=== PATIENT | female | born 1990 | race Caucasian/White ===

== ENCOUNTER 2024-02-20 13:52 | Inpatient (IN) | payer OTHER ==
[2024-02-20] MEDS: Lactated Ringers 1,000 ML IV ONE (14:28)
[2024-02-20] MEDS: Penicillin G Potassium 5 MILLUNITS in Sodium Chloride 0.9% 100 ML IV ONE (14:29)
[2024-02-20] MEDS ORDERED: Carboprost Tromethamine 250 MCG/1 ML Amp IM PRN (14:39)
[2024-02-20] MEDS ORDERED: Sodium Chloride 0.9% 10 ML Syringe FLUSH PRN (14:39)
[2024-02-20] MEDS ORDERED: Methylergonovine 0.2 MG/1 ML Amp IM PRN (14:39)
[2024-02-20] MEDS ORDERED: fentaNYL 100 MCG/2 ML SDV IVPUSH PRN (14:39)
[2024-02-20] MEDS ORDERED: Ondansetron 4 MG/2 ML SDV IVPUSH PRN (14:39)
[2024-02-20] MEDS ORDERED: Acetaminophen 325 MG Tab PO PRN (14:39)
[2024-02-20] MEDS ORDERED: Misoprostol 400 MCG (4 X 100 MCG TAB) RECTAL PRN (14:39)
[2024-02-20 14:46] LABS: HEMATOCRIT 36.8 % (37.0-47.0); HEMOGLOBIN 12.6 g/dL (12.0-16.0); MEAN CORPUSCULAR HEMOGLOBIN 30.7 pg (27.0-34.0); MEAN CORPUSCULAR HGB CONC 34.2 g/dL (33.0-35.0); MEAN CORPUSCULAR VOLUME 89.5 fL (80-100); RED BLOOD CELL COUNT 4.11 10^6/uL (4.2-5.4); WHITE BLOOD CELL COUNT,WBC 10.7 10^3/uL (5.0-10.0)
[2024-02-20] MEDS: Lactated Ringers 1,000 ML IV SCH (15:00)
[2024-02-20] MEDS ORDERED: ePHEDrine 50 MG/ML SDV IVPUSH PRN (15:11)
[2024-02-20] MEDS ORDERED: Phenylephrine HCl In 0.9% NaCl 1 MG/10 ML Syringe IVPUSH PRN (15:11)
[2024-02-20] MEDS ORDERED: Ropivacaine 200 MG in Premix Bag 1 BAG EPIDUR SCH (15:15)
[2024-02-20] MEDS: Penicillin G Potassium 3 MILLUNITS in Sodium Chloride 0.9% 100 ML IV SCH (17:36)
[2024-02-20] MEDS: Oxytocin/Normal Saline 30 UNIT/500 ML BAG IV SCH (18:01)
[2024-02-20] MEDS ORDERED: Simethicone 80 MG Tab.Chew PO PRN (19:07)
[2024-02-20] MEDS ORDERED: Oxytocin 10 Units/1 ML SDV IM PRN (19:07)
[2024-02-20] MEDS: Tranexamic Acid 1,000 MG in Sodium Chloride 0.9% 100 ML IV PRN (19:51)
[2024-02-20] MEDS: Lidocaine 1% 30 ML SDV INJECT ONE (19:54)
[2024-02-20] MEDS: Ibuprofen 800 MG Tab PO SCH (20:01)
[2024-02-20] MEDS: Docusate Sodium 100 MG Cap PO PRN (20:01)
[2024-02-20] MEDS: Methylergonovine 0.2 MG Tab PO SCH (20:02)
[2024-02-20] MEDS: Benzocaine/Menthol 20%-0.5% Spray 78 GM Cannister TOP PRN (20:03)
[2024-02-21] MEDS: Acetaminophen 325 MG Tab PO PRN (01:28)
[2024-02-21] MEDS: Witch Hazel Medicated Pads 100/Jar TOP PRN (08:36)
[2024-02-21] MEDS: Prenatal Multivitamin with Calcium/Folic Acid/Iron Tab PO SCH (08:37)
[2024-02-21] MEDS: Calcium Carbonate 500 MG Tab.Chew PO PRN (14:50)
[2024-02-22] MEDS ORDERED: Bupivacaine 0.25% 10 ML SDV EPIDUR ONE (12:54)
[2024-02-22] MEDS ORDERED: Ropivacaine 100 ML EPIDUR ONE (12:54)
[2024-02-22] MEDS ORDERED: fentaNYL 100 MCG/2 ML SDV EPIDUR ONE (12:54)
== END 2024-02-22 12:55 | disposition home or self-care (01) | DRG 807 ==
LOC: DL.OBCHECK 13:52 → DL.OB 14:19 → UNDOADMOB 14:19 → DL.OB 17:58 → OBSVTOIN 18:18 → INTOOBSV 18:18 → DL.OB 18:18
PROVIDERS: ADMIT Family Medicine; ATTEND Family Medicine
PROC: 10E0XZZ Delivery of Products of Conception, External Approach (ICD-10-PCS; principal; 2024-02-20)
PROC: 0KQM0ZZ Repair Perineum Muscle, Open Approach (ICD-10-PCS; 2024-02-20)
PROC: 3E0R3BZ Introduction of Anesthetic Agent into Spinal Canal, Percutaneous Approach (ICD-10-PCS; 2024-02-20)
PROC: 00HU33Z Insertion of Infusion Device into Spinal Canal, Percutaneous Approach (ICD-10-PCS; 2024-02-20)
DX: O99.824 Streptococcus B carrier state complicating childbirth (principal); Z37.0 Single live birth; Z3A.38 38 weeks gestation of pregnancy; O99.284 Endocrine, nutritional and metabolic diseases complicating childbirth; E03.9 Hypothyroidism, unspecified; O99.02 Anemia complicating childbirth; O70.1 Second degree perineal laceration during delivery; O42.02 Full-term premature rupture of membranes, onset of labor within 24 hours of rupture; O99.814 Abnormal glucose complicating childbirth
CPT/HCPCS: 01967; 36415; 51701; 59409; 85027; A9270-GY; J0665; J2540; J2590; J2795; J3010; J3490; J7120